=== PATIENT | female | born 1935 | race Caucasian/White ===

== ENCOUNTER → 2019-01-19 | Outpatient (CLI) | payer OTHER ==
[~2019-01-19] MED LIST: ASPIR 8181 MG PO; BENADRYL25 MG PO; CALCIUM 600 +1 EAC1 PO; CLARITIN10 MG PO; HYDROCHLOROTHIA25 M1 PO; LEVOTHYROXINE 0.1 MG; LISINOPRIL5 MG PO; LOVASTATIN 20 M20 MG; MULTIVITAMINS1 EAC7 PO
[2019-01-19 14:55] LABS: CREATININE 0.9 mg/dL (0.6-1.0)
== END ==
LOC: MRI 13:54
PROVIDERS: Psychiatry & Neurology Neuromuscular Medicine
DX: R90.82 White matter disease, unspecified (principal); R41.3 Other amnesia